=== PATIENT | male | born 1970 | race Caucasian/White ===

== ENCOUNTER 2020-04-06 06:06 | Emergency (ER) | payer OTHER ==
[2020-04-06] MEDS ORDERED: dexAMETHasone 10 MG/ML VIAL ONE (07:32)
[2020-04-06] MEDS ORDERED: KETOROLAC 30 MG/ML INJ ONE (07:32)
--- NOTE | 2020-04-06 08:32 | ER ---
Nurse's Notes [facility] Name: Evan Medrano Age: 50 yrs Sex: Male : 1970 Arrival Date: 04/06/2020 Time: 06:13 Bed 19 Private MD: Diagnosis: Radiculopathy, lumbar region;Low back pain Presentation: 04/06 06:28 Chief complaint: Patient states: "For the last few months I have been back and forth at [facility] with sciatica pain, last night it hurt so bad I couldn't sleep. I can here because I need a referral to a surgeon or something because I can't take the pain any more.". 06:28 Method Of Arrival: Wheelchair 06:57 Coronavirus screen: At this time, the client does not indicate any symptoms associated vc with coronavirus-19. Ebola Screen: No symptoms or risks identified at this time. 06:59 Initial Sepsis Screen: Does the patient meet any 2 criteria? No. Patient's initial sepsis screen is negative. Does the patient have a suspected source of infection? No. Patient's initial sepsis screen is negative. Risk Assessment: Do you want to hurt yourself or someone else? Patient reports no desire to harm self or others. Onset of symptoms is unknown. 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 - Social history:: Smoking status: Patient reports the use of cigarette tobacco products, smokes one pack cigarettes per day. Screenin:12 Abuse screen: Denies threats or abuse. Denies injuries from another. Nutritional jr10 screening: No deficits noted. Tuberculosis screening: No symptoms or risk factors identified. Fall Risk Fall in past 12 months (25 points). No secondary diagnosis (0 pts). IV access (20 points). Ambulatory Aid- None/Bed Rest/Nurse Assist (0 pts). Gait- Weak (10 pts.). Mental Status- Oriented to own ability (0 pts). Assessment: 08:13 General: Appears uncomfortable, Behavior is anxious, restless. Pain: Complains of pain jr10 in right lower back, right gluteus migel and right leg Pain currently is 9 out of 10 on a pain scale. Quality of pain is described as radiating, sharp, shooting, stabbing, Is episodic, Aggravated by increased activity, repositioning, weight bearing. Neuro: No deficits noted. Cardiovascular: No deficits noted. Respiratory: No deficits noted. GI: No deficits noted. No signs and/or symptoms were reported involving the gastrointestinal system. : No deficits noted. No signs and/or symptoms were reported regarding the genitourinary system. EENT: No deficits noted. No signs and/or symptoms were reported regarding the EENT system. Derm: No deficits noted. No signs and/or symptoms reported regarding the dermatologic system. Musculoskeletal: Circulation, motion, and sensation intact. Range of motion: intact in all extremities, Swelling absent Reports weakness in right leg pain in right lower back, right gluteus migel and right leg. Vital Signs: 06:59 BP 141 / 93; Pulse 93; Resp 20; Pulse Ox 97% on R/A; Weight 86.18 kg; Height 5 ft. 11 vc in. (180.34 cm); Pain 10/10; 08:12 BP 122 / 83; Pulse 86; Resp 22; Pulse Ox 100% on R/A; jr10 06:59 Body Mass Index 26.50 (86.18 kg, 180.34 cm) vc ED Course: 06:13 Patient arrived in ED. bp1 06:20 Radha Quintero RN is Primary Nurse. vc 06:21 Tank Wood PA is PHCP. jr8 06:21 Jared Nj MD is Attending Physician. jr8 06:59 Triage completed. vc 08:12 Patient has correct armband on for positive identification. Bed in low position. Call jr10 light in reach. Side rails up X2. Pulse ox on. NIBP on. 08:13 No provider procedures requiring assistance completed. Inserted saline lock: 20 gauge jr10 in left antecubital area, using aseptic technique. IV is patent, is intact, with fluids infusing freely, with good blood return, Flushed. 08:15 Primary Nurse role handed off by Radha Quintero RN jr10 08:15 Mireya Pak RN is Primary Nurse. jr10 08:31 Tito Cardozo MD is Referral Physician. jr8 Administered Medications: 08:11 Drug: TORadol 30 mg Route: IVP; Site: left antecubital; jr10 08:11 Drug: Decadron - Dexamethasone 10 mg Route: IVP; Site: left antecubital; jr10 08:12 Drug: Robaxin 1 grams Route: IVPB; Infused Over: 1 hrs; Site: left antecubital; jr10 Outcome: 08:31 Discharge ordered by . jr8 09:28 Patient left the ED. dm5 Signatures: Telma Hendricks RN RN dm5 Lilliam Lyles RN RN iw Tank Wood PA PA jr8 Radha Quintero RN RN vc Yari Damon Jessica, RN RN jr10 Corrections: (The following items were deleted from the chart) 07:19 06:59 Acuity: FAY 4 vc eric
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
[2020-04-06 09:45] VITALS: BP 122/83; O2SAT 100
== END 2020-04-06 09:28 | disposition home or self-care (01) ==
LOC: ER 06:06
DX: M54.16 Radiculopathy, lumbar region (principal); F17.210 Nicotine dependence, cigarettes, uncomplicated; Z88.1 Allergy status to other antibiotic agents
CPT/HCPCS: 96375; 96374; 99283; J1100; J2800